=== PATIENT | male | born 1950 ===

== ENCOUNTER → 2017-09-22 | Outpatient (CLI) | payer BC | LOC: FIMAGING 12:55 | PROVIDERS: ATTEND Nurse Practitioner | DX: M79.605 Pain in left leg (principal); R93.6 Abnormal findings on diagnostic imaging of limbs ==

== ENCOUNTER → 2017-10-19 | Outpatient (CLI) | payer BC ==
[~2017-10-19] MED LIST: GADOBUTROL 10 ML VIAL IVP ONE
== END ==
LOC: FIMAGING 11:57
PROVIDERS: ATTEND Emergency Medicine
DX: M65.862 Other synovitis and tenosynovitis, left lower leg (principal); M25.462 Effusion, left knee; M23.42 Loose body in knee, left knee; M23.52 Chronic instability of knee, left knee; M23.304 Other meniscus derangements, unspecified medial meniscus, left knee; M23.252 Derangement of posterior horn of lateral meniscus due to old tear or injury, left knee; M23.622 Other spontaneous disruption of posterior cruciate ligament of left knee
CPT/HCPCS: 82565-PO; A9585